=== PATIENT | male | born 1930 | race Caucasian/White ===

== ENCOUNTER → 2016-08-14 | Outpatient (CLI) | payer OTHER | LOC: FIMAGING 10:15 | PROVIDERS: ATTEND Internal Medicine Cardiovascular Disease | DX: R09.89 Other specified symptoms and signs involving the circulatory and respiratory systems (principal); I70.8 Atherosclerosis of other arteries; I25.10 Atherosclerotic heart disease of native coronary artery without angina pectoris ==

== ENCOUNTER 2017-03-30 14:58 | Emergency (ER) | payer OTHER ==
[2017-03-30 15:03] VITALS: BP 150/66; PULSE 58; RESP 16; TEMP 97.7; O2SAT 98
--- NOTE | 2017-03-30 15:23 | EDPHY ---
HPI/HX/ROS/PE/MDM Narrative: CHIEF COMPLAINT: Left hand laceration HPI: The patient is an 86 y/o male complaining of a left hand laceration after accidently stabbing himself with his pocket knife 1 hour ago. Denies numbness, fever, chills. REVIEW OF SYSTEMS: Aside from elements discussed in the HPI, a comprehensive 10-point review of systems was reviewed and is negative. PMH: Hypertension, hypercholesteremia, GERD, spinal fusion SOCIAL HISTORY: , lives in [place], retired PHYSICAL EXAM: General: Patient is alert, in no acute distress. Left Hand: 1.5cm laceration to dorsal aspect of left hand between 1st and 2nd digits. Light touch sensation and motor function is preserved in the axillary, median, radial and ulnar nerve distributions. There is a 2+ radial pulse with brisk cap refill. Neuro: Oriented x3. Normal motor function. Normal sensory function. ED Course: 1545: Procedure: Laceration repair. Verbal consent was obtained from the patient. The linear 1.5cm laceration on the dorsal aspect of the left hand between the 1st and 2nd digits, was anesthetized using lidocaine with epinephrine. The wound was cleaned with standard ED protocol, draped and explored to its base with a gloved finger. There were no deep structures involved. No tendon injury was identified. The wound was repaired in single layer technique with 3, 4-0 Prolene sutures. The wound repair was simple. The procedure was performed by myself, Dr. Reyna. Reassessed patient and discussed return precautions. Patient is comfortable with this plan. MDM: Uncomplicated laceration without evidence of FB, nerve,tendon or vessel involvement. General Time Seen by Provider: 03/30/17 15:20 Initial Vital Signs: Initial Vital Signs Temperature (C) 36.5 C 03/30/17 15:01 Heart Rate 58 L 03/30/17 15:01 Respiratory Rate 16 03/30/17 15:01 Blood Pressure 150/66 H 03/30/17 15:01 O2 Sat (%) 98 03/30/17 15:01 O2 Delivery Mode Room Air Allergies/Adverse Reactions: No Allergies Allergy (Unknown, Verified 04/21/13 10:54) Home Medications: Medication Instructions Recorded Atorvastatin Calcium [Lipitor] 0 mg PO 01/07/11 Levothyroxine Sodium [Synthroid] 25 mcg PO DAILY 01/07/11 Losartan Potassium 25 mg PO DAILY 01/07/11 Metoprolol Succinate Xr [Toprol Xl] 0 mg PO DAILY 01/07/11 Omeprazole 0 mg PO 01/07/11 Triamterene/Hydrochlorothiazid 1 each PO 01/07/11 [Triamterene-Hctz 75-50 mg Tab] Cephalexin [Keflex (RX)] 500 mg PO Q6H #28 cap 04/21/13 SULFAMETHOXAZOLE/TRIMETHOPRIM 1 each PO BID #14 tab 04/21/13 [BACTRIM DS TABLET] Departure - Departure Disposition: Home, Routine, Self-Care Clinical Impression: Laceration Condition: Good Instructions: Laceration (ED) Additional Instructions: 1. Sutures out in 10-14 days. 2. Return to the Emergency Department for fever, redness, discharge from wound, increasing pain or other worsening of condition. Referrals: To Kaufman MD [Primary Care Provider] - As per Instructions Report Scribed for: Quang Reyna Report Scribed by: Leslee Euceda Date of Report: 03/30/17 Time of Report: 15:23 Physician Review and Approval Statement: Portions of this note were transcribed by an ED scribe. I personally performed the history, physical exam, and medical decision making; and confirm the accuracy of the information in the transcribed note.
== END 2017-03-30 15:50 | disposition home or self-care (01) ==
PROC: 0HQGXZZ Repair Left Hand Skin, External Approach (ICD-10-PCS; principal; 2017-03-30)
DX: S61.412A Laceration without foreign body of left hand, initial encounter (principal); I10 Essential (primary) hypertension; W26.0XXA Contact with knife, initial encounter

== ENCOUNTER → 2017-03-31 | Outpatient (CLI) | payer OTHER | LOC: BHFA 10:45 | PROVIDERS: ATTEND Internal Medicine Cardiovascular Disease | DX: I10 Essential (primary) hypertension (principal) ==

== ENCOUNTER 2018-03-04 10:50 | Inpatient (IN) | payer OTHER ==
[2018-03-04] MEDS ORDERED: CLOPIDOGREL BISULFATE 75 MG TAB ONE (10:56)
[2018-03-04] MEDS ORDERED: LIDOCAINE 1% 300 MG/30 ML SDV ONE (10:57)
--- NOTE | 2018-03-04 10:57 | EDPHY ---
H & P Time Seen by Provider: 03/04/18 10:50 HPI/ROS: CHIEF COMPLAINT: Chest pain, cardiac alert HISTORY OF PRESENT ILLNESS: Symptoms started around 10:00 a.m., central chest pain like somebody sitting on his chest. Little bit associated shortness of breath. Does not radiate. Not better worse with respiration or exertion. Received oral aspirin in route by EMS. REVIEW OF SYSTEMS: Eye: no change in vision ENT: no sore throat Cardiac: HPI Pulmonary: no cough or SOB Abdomen: no vomiting, diarrhea, abdominal pain Musculoskeletal: no back pain Skin: no rash Neuro: no headache Constitutional: no fever : no urinary symptoms A comprehensive 10 point review of systems is otherwise negative aside from elements mentioned in the history of present illness. PAST MEDICAL HISTORY: Coronary disease with previous stenting 10 years ago. Includes hypertension, hypercholesterolemia, spinal fusion. Social history: [employer] patient, retired, lives in [place]. General Appearance: Alert and conversant, cooperative. Eyes: No scleral icterus. ENT, Mouth: Normal mucous membranes. Respiratory: Normal respiratory effort, breath sounds equal, lungs are clear to auscultation. Cardiovascular: Regular rate and rhythm. Gastrointestinal: Abdomen is soft and non tender. Neurological: Alert, face symmetric, normal motor and sensory in extremities. Skin: Warm and dry, no rashes. Musculoskeletal: No peripheral edema. Psychiatric: Not agitated. Emergency Department course/MDM: Cardiology present on arrival for the ambulance. Directly to logging rafter laborer for ST elevation OK. Oral Plavix given in ED prior to cath, specifically at the request of entry level software developer Dr. Armando. Total critical care time 10 min. Smoking Status: Never smoked Constitutional: Initial Vital Signs Temperature (C) 36.4 C 03/04/18 11:00 Heart Rate 63 03/04/18 11:00 Respiratory Rate 18 03/04/18 11:00 Blood Pressure 161/81 H 03/04/18 11:00 O2 Sat (%) 100 03/04/18 11:00 O2 Delivery Mode Room Air Allergies/Adverse Reactions: No Allergies Allergy (Unknown, Verified 03/04/18 10:59) Home Medications: Medication Instructions Recorded Atorvastatin Calcium [Lipitor] 0 mg PO 01/07/11 Levothyroxine Sodium [Synthroid] 25 mcg PO DAILY 01/07/11 Losartan Potassium 25 mg PO DAILY 01/07/11 Metoprolol Succinate Xr [Toprol Xl] 0 mg PO DAILY 01/07/11 Omeprazole 0 mg PO 01/07/11 Triamterene/Hydrochlorothiazid 1 each PO 01/07/11 [Triamterene-Hctz 75-50 mg Tab] Cephalexin [Keflex (RX)] 500 mg PO Q6H #28 cap 04/21/13 SULFAMETHOXAZOLE/TRIMETHOPRIM 1 each PO BID #14 tab 04/21/13 [BACTRIM DS TABLET] Medical Decision Making - Diagnostics EKG Interpretation: 12-lead EKG interpreted by me; official reading is in computer system. My interpretation is sinus rhythm with acute inferior OK with ST elevation and lateral reciprocal changes. Differential Diagnosis: Differential diagnosis considered for chest pain including but not limited to myocardial ischemia, aortic dissection, pericarditis, pulmonary embolus, chest wall pain, pleural inflammation and pulmonary infectious causes. - Data Points Laboratory Results: Laboratory Results 03/04/18 11:00 03/04/18 03/04/18 03/04/18 11:02 11:00 11:00 WBC RBC Hgb POC Hgb 16.0 gm/dL gm/dL (13.7-17.5) Hct POC Hct 47 % % (40-51) MCV MCH MCHC RDW Plt Count MPV Neut % (Auto) Lymph % (Auto) [place] % (Auto) Eos % (Auto) Baso % (Auto) Nucleat RBC Rel Count Absolute Neuts (auto) Absolute Lymphs (auto) Absolute Monos (auto) Absolute Eos (auto) Absolute Basos (auto) Absolute Nucleated RBC Immature Gran % Immature Gran # PT Pending INR Pending APTT Pending POC Sodium 138 mEq/L mEq/L (135-145) Sodium Pending POC Potassium 4.7 mEq/L mEq/L (3.3-5.0) Potassium Pending POC Chloride 105 mEq/L mEq/L (97-110) Chloride Pending Carbon Dioxide Pending Anion Gap Pending POC BUN 22 mg/dL mg/dL (7-23) BUN Pending Creatinine Pending POC Creatinine 1.3 mg/dL mg/dL (0.7-1.3) Estimated GFR Pending Glucose Pending POC Glucose 101 mg/dL H mg/dL (70-100) Calcium Pending Troponin I Pending 03/04/18 11:00 WBC 7.69 10^3/uL 10^3/uL (3.80-9.50) RBC 4.79 10^6/uL 10^6/uL (4.40-6.38) Hgb 15.9 g/dL g/dL (13.7-17.5) POC Hgb Hct 46.6 % % (40.0-51.0) POC Hct MCV 97.3 fL fL (81.5-99.8) MCH 33.2 pg pg (27.9-34.1) MCHC 34.1 g/dL g/dL (32.4-36.7) RDW 12.0 % % (11.5-15.2) Plt Count 152 10^3/uL 10^3/uL (150-400) MPV 10.7 fL fL (8.7-11.7) Neut % (Auto) 46.3 % % (39.3-74.2) Lymph % (Auto) 39.5 % % (15.0-45.0) [place] % (Auto) 11.2 % % (4.5-13.0) Eos % (Auto) 2.0 % % (0.6-7.6) Baso % (Auto) 0.7 % % (0.3-1.7) Nucleat RBC Rel Count 0.0 % % (0.0-0.2) Absolute Neuts (auto) 3.57 10^3/uL 10^3/uL (1.70-6.50) Absolute Lymphs (auto) 3.04 10^3/uL H 10^3/uL (1.00-3.00) Absolute Monos (auto) 0.86 10^3/uL H 10^3/uL (0.30-0.80) Absolute Eos (auto) 0.15 10^3/uL 10^3/uL (0.03-0.40) Absolute Basos (auto) 0.05 10^3/uL 10^3/uL (0.02-0.10) Absolute Nucleated RBC 0.00 10^3/uL 10^3/uL (0-0.01) Immature Gran % 0.3 % % (0.0-1.1) Immature Gran # 0.02 10^3/uL 10^3/uL (0.00-0.10) PT INR APTT POC Sodium Sodium POC Potassium Potassium POC Chloride Chloride Carbon Dioxide Anion Gap POC BUN BUN Creatinine POC Creatinine Estimated GFR Glucose POC Glucose Calcium Troponin I Medications Given: Discontinued Medications Clopidogrel Bisulfate (Plavix) 600 mg PO EDNOW ONE Stop: 03/04/18 11:04 Last Admin: 03/04/18 10:57 Dose: 600 mg Point of Care Test Results: Chemistry 03/04/18 11:02 POC Sodium 138 mEq/L mEq/L (135-145) POC Potassium 4.7 mEq/L mEq/L (3.3-5.0) POC Chloride 105 mEq/L mEq/L (97-110) POC BUN 22 mg/dL mg/dL (7-23) POC Creatinine 1.3 mg/dL mg/dL (0.7-1.3) POC Glucose 101 mg/dL H mg/dL (70-100) ISTAT H&H 03/04/18 11:02 POC Hgb 16.0 gm/dL gm/dL (13.7-17.5) POC Hct 47 % % (40-51) Departure - Departure Disposition: To OP Cath/Surgery Clinical Impression: Acute OK Qualifiers: Myocardial infarction type: ST elevation myocardial infarction Involved coronary artery: unspecified coronary artery Qualified Code(s): I21.3 - ST elevation (STEMI) myocardial infarction of unspecified site Condition: Serious Referrals: Patient,NotPresent [Primary Care Provider] - As per Instructions
[2018-03-04] MEDS ORDERED: MIDAZOLAM 2 MG/2 ML VIAL ONE (10:58)
[2018-03-04] MEDS ORDERED: fentaNYL 100 MCG/2 ML INJ ONE (10:58)
[2018-03-04] MEDS ORDERED: IOPAMIDOL (ISOVUE-370) 150 ML BTL IV ONE (10:58)
[2018-03-04] MEDS ORDERED: BIVALIRUDIN 250 MG/5 ML VIAL IV ONE (11:01)
[2018-03-04] MEDS ORDERED: ATROPINE SULFATE 1 MG/10 ML SYR ONE (11:01)
[2018-03-04] MEDS ORDERED: EPINEPHrine 1 MG/10 ML SYR IVP ONE (11:01)
[2018-03-04] MEDS ORDERED: CLOPIDOGREL BISULFATE 75 MG TAB PO ONE (11:03)
--- NOTE | 2018-03-04 11:04 | CPEKG ---
Test Reason : OPEN Blood Pressure : / mmHG Vent. Rate : 064 BPM Atrial Rate : 063 BPM P-R Int : 144 ms QRS Dur : 122 ms QT Int : 414 ms P-R-T Axes : 058 095 084 degrees QTc Int : 427 ms Sinus rhythm Nonspecific intraventricular conduction delay Inferoposterior infarct, acute (RCA) Lateral leads are also involved Probable RV involvement, suggest recording right precordial leads Confirmed by Brayan Bowman ([id number]) on 03/04/2018 11:03:43 AM Referred By: Confirmed By:Brayan Bowman
[2018-03-04 11:07] LABS: PLATELET COUNT 152 10^3/uL (150-400)
[2018-03-04 11:12] LABS: INR 0.98 (0.83-1.16); PROTIME(PATIENT) 13.2 SEC (12.0-15.0)
--- NOTE | 2018-03-04 11:13 | PDCONSULT ---
Title Examiner Note: CC: chest pains HPI: Patient is an 87 y/o male with history of CAD s/p PCI (unknown vessel), HTN, and HLP, who presents to the ER via EMS with "chest pains". In the field, EMS with ECG revealing ST elevation to the inferior leads. Symptoms began about 30 minutes prior to arrival in the ER. Substernal location with left moreso than right in the beginning. No symptoms were noted this morning upon awakening. Radiation of the discomfort into the shoulders, and neck. Patient "feels not well" with associated dyspnea. Patient does not have ASA therapy on home medication list. In the ER, the patient was given 600 mg of Plavix. No PND or orthopnea has been noted. No regular follow up with cardiology has been performed for "...some time..." Remainder of the 12 point review of systems was unremarkable PHMx: (1) CAD with PCI to unspecified vessel (2) HTN (3) HLP (4) No DM (5) GERD (6) Hypothyroidism PSHx: (1) PCI SHx: (1) non smoker FHx: Non contributory NKDA Home medications (1) Prilosec 20 mg (2) Pravastatin 20 mg (3) Toprol XL 50 mg (4) Triam/HCTZ 37.5/25 mg (5) Losartan 50 mg (6) Levothyroxine 0.05 mg (7) Vitamin, CoQ-10, Mg Vital as below GEN: awake and alert with discomfort to anterior chest (at this point in time, right moreso than left) SKIN: No rash, excoriation HEENT: NCAT with PERRLA, EOMI Neck: (+) JVD was noted LUNGS: CTA bilaterally without crackles noted COR: RRR without m/r/g, (+S4) ABD: Soft, NTND with NABS EXT: No c/c/e, 2+ DP/PT/RAD Neuro: No focal deficits were noted Labs: All pending Echocardiogram: Pending ECG with ST elevation to II, III, aVF Assessment: 87 y/o male with acute onset of chest pains/discomfort about 30 minutes prior to admission via EMS. ECG with dynamic ST/T wave changes noted. Plavix load in the ER. Patient to be taken to the cardiac cardiac cath lab technologist now Plan: (1) Angiography for assessment of the RCA lesion location/extent Further recommendations after diagnostic testing completed
[2018-03-04] MEDS ORDERED: NITROGLYCERIN 1,500 MCG/15 ML VIAL MISC ONE (11:31)
[2018-03-04] MEDS ORDERED: ACETAMINOPHEN 325 MG TAB PO PRN (11:56)
[2018-03-04] MEDS ORDERED: LORazepam 2 MG/ML INJ IVP PRN (11:56)
[2018-03-04] MEDS ORDERED: hydrALAZINE 20 MG/ML VIAL IVP PRN (12:00)
--- NOTE | 2018-03-04 12:57 | ECHO ---
[email or web address] [address] [address] Main: [phone] Fax: Transthoracic Echocardiogram Name: DEL VALDEZ MR#: [id number] Study Date: 03/04/2018 Study Time: 12:19 PM Date of : 1930 Age: 87 year(s) Height: 177.8 cm (70 in.) Weight: 81.01 kg (178.59 lb.) BSA: 1.99 m2 Gender: Male Examination: Echo Indication: Post Cath Image Quality: Contrast: Requested by: Brayan Bowman BP: / Heart Rate: Rhythm: Indication: Post Cath Procedure Staff Safety Lamp Keeper: Mac Taylor RDCS Reading Physician: Pal Johnson MD Requesting Provider: Safety Lamp Keeper: Reading Physician: Pal Johnson MD Requesting Provider: Conclusions: Normal size left ventricle. No LV hypertrophy. Normal global systolic LV function. EF is 61 %. Diastolic dysfunction is present. . There is basilar to mid inferolateral dyskinesis.. Trivial mitral valve regurgitation. The aortic valve is tri-leaflet and functions normally. Trivial tricuspid valve regurgitation. The pulmonic valve is normal in appearance and function. No pericardial effusion. Measurements: Chambers Valvular Assessment AV/MV Valvular Assessment TV/PV Normal Normal Normal Name Value Range Name Value Range Name Value Range IVSd (2D): 0.8 cm (0.6 cm-1.1 AV Vmax: 1.05 m/s (1 m/s-1.7 TR Vmax: 2.43 mm/s ( - ) cm) m/s) TR PGmax: 24 mmHg ( - ) LVDd (2D): 4.0 cm (4.2 cm-5.9 AV maxP mmHg ( - ) syst. PAP: 34 mmHg ( - ) cm) LVOT Vmax: 0.94 m/s (0.7 m/s-1.1 PV Vmax: 0.80 m/s (0.6 m/s-0.9 LVDs (2D): 2.7 cm (2.1 cm-4 m/s) m/s) cm) MV E Vmax: 0.81 m/s ( - ) PV PGmax: 3 mmHg ( - ) LVPWd (2D): 0.9 cm (0.6 cm-1 MV A Vmax: 0.65 m/s ( - ) cm) MV E/A: 1.25 ( - ) LVEF (2D): 61 (>=54 %) Patient: DEL VALDEZ Study Date: 03/04/2018 Page 1 of 2 12:19 PM Continued Measurements: Chambers Valvular Assessment AV/MV Valvular Assessment TV/PV Name Value Name Value Name Value LADs: 3.5 cm MV E' Septal: 0.04 m/s CVP (est.): 10 mmHg LADs Lon.7 cm MV E/E' Septal: 18.50 LA Area: 16.1 cm2 MV E/E' Lateral: 16.40 LA Volume: 48 ml LA Volume Index: 24.1 ml/m2 Findings: Left Ventricle: Normal size left ventricle. No LV hypertrophy. Normal global systolic LV function. EF is 61 %. Diastolic dysfunction is present. . There is basilar to mid inferolateral dyskinesis.. Right Ventricle: Normal size right ventricle. Normal RV function. Left Atrium: The left atrium is normal in size. Right Atrium: The right atrium is normal in size. Mitral Valve: The mitral valve is normal in appearance and function. Trivial mitral valve regurgitation. Aortic Valve: The aortic valve is tri-leaflet and functions normally. There is no significant aortic valve regurgitation. Tricuspid Valve: The tricuspid valve appears normal. Trivial tricuspid valve regurgitation. The pulmonary artery pressure is normal. Pulmonic Valve: The pulmonic valve is normal in appearance and function. Aorta: The aorta is normal. Pericardium: No pericardial effusion. (No Signature Object) Patient: DEL VALDEZ Study Date: 03/04/2018 Page 2 of 2 12:19 PM [id number]
--- NOTE | 2018-03-04 15:09 | PDMN ---
Medical Necessity Medical necessity: Meets IP criteria per MD and MCG M-230 for STEMI requiring percutaneous intervention and ICU care
--- NOTE | 2018-03-04 16:05 | PDCONSULT ---
Search Engineer Note: Assessment # STEMI status post PCI with DESx2 to RCA # Moderate to severe ANASTASIA # hypoxemic respiratory failure, secondary to above # hypertension # hypothyroidism # GERD # chronic back pain status post prior surgeries Plan # post STEMI care per Cardiology # CPAP with naps and while sleeping. Patient has home CPAP but not does not tolerate full face mask. Patient has never tried a nasal mask or nasal pillows. Given cardiovascular comorbidities patient is much higher risk for complications from CPAP non adherence. I also advised patient and to call his DME company and asked to try a new nasal mask or pillows. I also recommend a short-term supply of a sleep aid to help acclimatize to his mask. Suggest trazodone 25 mg p.o. QHS or Ambien 2.5-5 mg p.o.QHS # continue Synthroid # continue oral outpatient antihypertensives # continue GERD treatment Chief complaint Chest pain HPI Mr. Polo is a very pleasant 87-year-old male with a history of CAD and prior PCI, hypertension, chronic back pain, ANASTASIA who presented to [facility] Emergency Department with substernal chest pain. He described left greater than right chest pain that he noticed upon awakening radiating into his shoulders and neck. This was incompletely relieved with rest. Patient was noted to have inferior lead ST elevations and was taken immediately to the dental laboratory assistant. He underwent PCI with drug eluting stents x2 to his RCA. At the time of interview patient denies chest pain, headaches, shortness of breath, fevers chills, leg swelling, however cold intolerance, depression. Allergies no known drug allergies Past medical history coronary disease status post prior PCI, hypertension, hyperlipidemia, chronic back pain, GERD, hypothyroidism Social history patient does not currently drink or smoke. He lives with his . They like to travel. Review of systems A comprehensive 10 point review of systems is obtained is negative except as per HPI Vitals Afebrile, pulse 57, blood pressure 119/52, respiratory rate 10, 100% on room air. Significant desaturations to less than 88% noted while sleeping. GEN: NAD, resting in bed a 30 degree incline. NEURO: A&Ox3, CN 2-12 GI HEENT: PERRL, EOMI, MMM, OP clear NECK: supple, trachea midline CHEST normal shape, no pes excavatum CVS: rrr no m/r/g PULM: CTA B, no wheezes/rales/rhonchi ABD: soft, NT, ND, NABS EXT: Right cor growing bandage with small to moderate amount fresh blood. No obvious hematoma. No pedal edema SKIN: warm, dry, intact, no rash PSYCH CAM negative, appropriate affect Data I reviewed patient's laboratory data and available medical record. Significant for a normal WBC count, hemoglobin 16, platelets 152, serum creatinine 1.3
--- NOTE | 2018-03-04 18:59 | CPIP ---
DATE OF PROCEDURE: 03/04/2018 REASON FOR PROCEDURE: STEMI. PROCEDURE PERFORMED: 1. Nonselective right groin sheathogram. 2. Bilateral coronary angiography. 3. Left heart catheterization. 4. Left ventriculogram. 5. Percutaneous coronary intervention of prox and mid RCA utilizing Synergy 3.5 x 16 mm drug-eluting stent and 3.0 x 16 mm drug-eluting stent. HISTORY: Briefly, this is an -iexd-yiz male with history of coronary artery disease. The patient had chest pain for the last 45 minutes. He came to the emergency room, was found to have an inferior STEMI. Patient was taken emergently to [facility] Cold Roll Operator. DESCRIPTION OF PROCEDURE: Patient was administered p.o. prior to getting on the table. A fter informed consent, we utilized right groin. 6-Portuguese sheath placed in right common femoral arter y after local lidocaine was given. A JL4 catheter was advanced to the left coronary artery. Images of left coronary artery revealed normal left main. Left circumflex artery with small caliber with mi ld 20% to 30% disease proximally. There appeared to be a high takeoff of a bifurcating ramus which h ad diffuse 30% to 40% disease, but no focal high-grade stenosis. Of note, there was collateralizatio n to the distal which indicated an RCA occlusion. The LAD had a stent in its proximal asp ect which appeared to be patent. There was 20% to 30% disease proximal to the stent, but no high-gra de obstruction. Distally, the LAD was a long vessel which wrapped around the apex with no significan t disease. After imaging was obtained, the JL4 diagnostic was removed. The JR4 guide catheter was t hen advanced to the right coronary artery, and this right coronary artery revealed normal ostial RCA. The proximal RCA had 30% to 40% tubular disease followed by an area of normal vessel. Just after t he takeoff of the RV marginal, there was 100% occlusion of the vessel. At this time, patient started on Angiomax bolus and drip. A ChoICE PT wire was advanced successfully and maneuvered to the RPDA. IVUS performed, angiography was obtained which showed what appeared to be an acute ruptured plaque i n the mid RCA. Of note, there appeared to be also a ruptured hazy area of the proximal RCA just abov e the RV marginal branch as well. At this time, we placed a 3.0 x 12 balloon into the mid RCA, infla riky at 12 atmospheres. After deflation, angiographic images were obtained which showed much improved patency of the mid RCA with no evidence of dissection or perforation. Of note, the proximal area of ulceration in question was still present. We decided to proceed with attempting stenting this vesse l; however, the 3.0 x 16 cm stent would not traverse the area, thus we put a aly wire with an Intui tion wire. The stent was then tried again, and this traversed easily this time, and this went to the mid RCA and deployed successfully after pulling back the Intuition wire at 16 atmospheres. After de ployment of the mid RCA stent, angiography obtained which showed improved patency of this area. We t hen proceeded with placing the aly wire back into the We then proceeded to tack up the p roximal lesion with a 3 x 5, 60 mm Synergy stent. After the second wire was pulled back, it was depl oyed at 16 atmospheres. After deployment, angiographic images were obtained which showed excellent p atency of the stented regions with no evidence of dissection or perforation. Wire was pulled back. The guide catheter was removed over a 0.035 wire. The pigtail catheter was then advanced in the left ventricle, EDP is 15 mmHg, left ventriculogram in the MELISSA projection showed an EF of 65% with no wal l motion abnormalities. No pullback gradient between the LV and the aorta. Pigtail catheter removed over a 0.035 wire, right groin, sutured in place. Patient tolerated the procedure well, no complica tions. IMPRESSION: 1. Successful percutaneous coronary intervention of right coronary artery ST-elevation myocardial in farction involving 2 focal areas, one in the proximal right coronary artery and the second in the mid right coronary artery with 2 Synergy drug-eluting stents. 2. Patent stent in the proximal to mid left anterior descending with diffuse noncritical disease in the left coronary system. 3. Normal ejection fraction. PLAN: The patient will have the sheath discontinued 2 hours after the Angiomax is finished. Echocar diogram to be ordered. Admit to ICU. /[id number]
[2018-03-05 07:25] LABS: PLATELET COUNT 132 10^3/uL (150-400)
--- NOTE | 2018-03-05 08:42 | PDCARPN ---
Cardiology Progress Note Chief Complaint: CP Assessment/Plan: Assessment: STEMI PCI to RCA Plan: 03/05/18 08:41 doing well transfer to PCU continue current tx d/c in AM if stable Subjective: doing well Reviewed/Discussed With: multidisciplinary team Time Spent with Patient: greater than 25 minutes Time Spent with Patient: Greater than 25 minutes spent on this patients care, greater than 50% of time spent counseling, educating, and coordinating care regarding the above mentioned plan. Objective: Vital Signs (8 Hrs) Temp Pulse Resp BP Pulse Ox 03/05/18 08:00 52 L 12 127/61 H 100 03/05/18 06:00 52 L 16 113/59 L 95 03/05/18 04:00 37.0 C 56 L 18 120/53 L 96 03/05/18 02:00 56 L 14 110/54 L 95 Intake/Output (24 Hrs) 03/04/18 03/05/18 03/06/18 05:59 05:59 05:59 Intake Total 1300 Output Total 1850 Balance -550 Intake: Oral (ml) 500 IV Intake (ml) 800 Output: Urine (ml) 1850 Urinal 1850 Other: Weight 79.379 kg Result Diagrams: 03/05/18 04:00 03/05/18 04:00 Cardiac Labs: Cardiac Lab Results (72 Hrs) 03/05/18 03/04/18 04:00 11:00 Troponin I 36.100 H 0.061 H - Physical Exam Constitutional: healthy appearing Eyes: PERRL Ears, Nose, Mouth, Throat: moist mucous membranes Cardiovascular: regular rate and rhythm Peripheral Pulses: 1+: femoral (R), femoral (L) Respiratory: clear to auscultate bilat Gastrointestinal: normoactive bowel sounds Genitourinary: no suprapubic tenderness Skin: no rashes Musculoskeletal: no muscular tenderness Neurologic: AAOx3 Psychiatric: cooperative ICD10 Worksheet Patient Problems: Problems Problem Status Onset Acute [place] Acute
[2018-03-05] MEDS ORDERED: PRAVASTATIN SODIUM 40 MG TAB PO SCH (09:00)
[2018-03-05] MEDS ORDERED: ATORVASTATIN CALCIUM 40 MG TAB PO SCH (09:00)
[2018-03-05] MEDS ORDERED: LOSARTAN POTASSIUM 50 MG TAB PO SCH (09:00)
[2018-03-05] MEDS ORDERED: METOPROLOL SUCCINATE XR 25 MG TAB PO SCH (09:00)
--- NOTE | 2018-03-05 09:30 | PDINTPN ---
Cleaning Handyman Progress Note Assessment/Plan: Assessment # STEMI status post PCI with DESx2 to RCA, doing excellent # Moderate to severe ANASTASIA # hypertension # hypothyroidism # GERD # chronic back pain status post prior surgeries Plan # post STEMI care per Cardiology # CPAP with naps and while sleeping. Patient has home CPAP but not does not tolerate full face mask. Patient has never tried a nasal mask or nasal pillows. Given cardiovascular comorbidities patient is at higher risk for complications from CPAP non adherence. I counseled again this morning to call his DME company and asked to try a new nasal mask or pillows. I also recommend a short-term supply of a sleep aid to help acclimatize to his mask. Suggest trazodone 25 mg p.o. QHS or Ambien 2.5-5 mg p.o.QHS # continue Synthroid # continue oral outpatient antihypertensives # continue GERD treatment # agree with PCU transfer Subjective: Slow up well overnight. No recurrent chest pain, groin site without hematoma or saturated bandages. Slept well throughout the night however was noted to be snoring in a couple witnessed apneas however with significant desaturation Objective: Vital Signs Temp Pulse Resp BP Pulse Ox 37.0 C 52 L 12 127/61 H 100 03/05/18 04:00 03/05/18 08:00 03/05/18 08:00 03/05/18 08:00 03/05/18 08:00 Laboratory Results 03/05/18 04:00 03/05/18 04:00 03/04/18 03/05/18 03/06/18 05:59 05:59 05:59 Intake Total 1300 Output Total 1850 Balance -550 PT 13.2 SEC (12.0-15.0) 03/04/18 11:00 INR 0.98 (0.83-1.16) 03/04/18 11:00 Physical Exam - Physical Exam General Appearance: WD/WN, alert, no apparent distress EENT: PERRL/EOMI, other (Mallampati 4, scalloped tongue) Neck: non-tender, supple Respiratory: chest non-tender, lungs clear, normal breath sounds Cardiac/Chest: regular rate, rhythm, No edema, No gallop, No JVD Abdomen: non-tender, soft Male Genitalia: deferred Rectal: deferred Skin: normal color, warm/dry Extremities: non-tender (Right right groin access site clean dry and intact, no hematoma), normal capillary refill Neuro/Psych: no motor/sensory deficits, alert, oriented x 3 ICD10 Worksheet Patient Problems: Problems Problem Status Onset Acute [place] Acute chronic disease mgmt/transitional care Acute
[2018-03-05] MEDS: CLOPIDOGREL BISULFATE 75 MG TAB PO SCH (09:43)
[2018-03-05] MEDS: ASPIRIN EC 81 MG TAB PO SCH (09:43)
[2018-03-05] MEDS: METOPROLOL SUCCINATE XR 50 MG TAB PO SCH (09:45)
[2018-03-05] MEDS: TRIAMTERENE/HCTZ 37.5/25 1 EACH TAB PO SCH (09:46)
[2018-03-05] MEDS: LOSARTAN POTASSIUM 50 MG TAB PO SCH (09:46)
--- NOTE | 2018-03-05 11:24 | ASMTCASEMG ---
Living Arrangements What is your living Answers: With Spouse arrangement? Who do you live with? Type Of Residence What kind of residence do Answers: House you live in? Discharge Plan Comments Coordination Status Comments Notes: Patient is an 87yo male who was brought to [facility] ED for cardiac alert, chest pain. Patient was taken to the cardiac dock or pier laborer. Cardiac rehab consult has been ordered. D/C plan TBD. CM will follow. Date Signed: 03/05/2018 11:24 AM Electronically Signed By:Arminda Kumar LCSW
[2018-03-06 04:16] LABS: PLATELET COUNT 129 10^3/uL (150-400)
[2018-03-06] MEDS ORDERED: LEVOTHYROXINE 75 MCG TAB PO SCH (06:00)
--- NOTE | 2018-03-06 07:04 | PDCARPN ---
Cardiology Progress Note Chief Complaint: CP Assessment/Plan: Assessment: STEMI PCI to RCA Plan: 03/05/18 08:41 doing well transfer to PCU continue current tx d/c in AM if stable 03/06/18 07:03 doing well no CP trop decreased d/c home today f/u next week Subjective: doing well Reviewed/Discussed With: multidisciplinary team Time Spent with Patient: greater than 25 minutes Time Spent with Patient: Greater than 25 minutes spent on this patients care, greater than 50% of time spent counseling, educating, and coordinating care regarding the above mentioned plan. Objective: Vital Signs (8 Hrs) Temp Pulse Resp BP Pulse Ox 03/06/18 04:00 36.9 C 60 17 125/58 H 93 03/05/18 23:48 37.1 C 52 L 16 117/58 L 95 Intake/Output (24 Hrs) 03/05/18 03/06/18 03/07/18 05:59 05:59 05:59 Intake Total 1300 1300 Output Total 1850 500 Balance -550 800 Intake: Oral (ml) 500 1300 IV Intake (ml) 800 Output: Urine (ml) 1850 500 Urinal 1850 500 Other: Weight 79.379 kg Number of Voids Urinal 1 Result Diagrams: 03/06/18 03:08 03/06/18 03:08 Cardiac Labs: Cardiac Lab Results (72 Hrs) 03/06/18 03/05/18 03/04/18 03:08 04:00 11:00 Troponin I 14.700 H 36.100 H 0.061 H - Physical Exam Constitutional: healthy appearing Eyes: PERRL Ears, Nose, Mouth, Throat: moist mucous membranes Cardiovascular: regular rate and rhythm Peripheral Pulses: 1+: femoral (R), femoral (L) Respiratory: clear to auscultate bilat Gastrointestinal: normoactive bowel sounds Genitourinary: no suprapubic tenderness Skin: no rashes Musculoskeletal: no muscular tenderness Neurologic: AAOx3 Psychiatric: cooperative ICD10 Worksheet Patient Problems: Problems Problem Status Onset Acute [place] Acute chronic disease mgmt/transitional care Acute
--- NOTE | 2018-03-06 07:27 | GDS ---
DISCHARGE DIAGNOSES: ST-elevation myocardial infarction, coronary artery disease. HOSPITAL COURSE: Briefly, this is an 87-year-old male who was admitted on 03/04/2018, for acute ches t pain and was found to have inferior STEMI. The patient was taken to the cardiac seed laboratory assistant where he was found to have 100% occluded RCA. He underwent successful placement 2 drug-eluting stent placemen ts to his right coronary artery. He did have a stent in his LAD from a previous PCI, which was widel y patent with only moderate noncritical disease in the left coronary system. The patient's ejection fraction was normal. Postprocedure, the patient has done very well, ambulating in the halls without problems. There is no recurrent chest pain. Echo shows normal ejection fraction. The patient will be discharged home with his home medications including baby aspirin and Plavix. He will follow up in the office in 1 week's time. /[id number]/MODL
[2018-03-06] MEDS: ASPIRIN EC 81 MG TAB PO SCH (08:03)
[2018-03-06] MEDS: LOSARTAN POTASSIUM 50 MG TAB PO SCH (08:04)
[2018-03-06] MEDS: CLOPIDOGREL BISULFATE 75 MG TAB PO SCH (08:04)
[2018-03-06] MEDS: METOPROLOL SUCCINATE XR 50 MG TAB PO SCH ×2 (08:05→09:04)
[2018-03-06] MEDS ORDERED: PRAVASTATIN SODIUM 40 MG TAB PO SCH (09:00)
[2018-03-06] MEDS ORDERED: PANTOPRAZOLE SODIUM 40 MG TAB PO SCH (09:00)
[2018-03-06] MEDS: TRIAMTERENE/HCTZ 37.5/25 1 EACH TAB PO SCH (09:04)
--- NOTE | 2018-03-06 09:37 | ASMTCMCOM ---
CM Note CM Note Notes: CM spoke to SHARLA Dempsey regarding d/c POC. Pt will not have any needs when medically stable to d/c. CM available for changes. Plan: Independent Date Signed: 03/06/2018 09:36 AM Electronically Signed By:PATRICIA Driscoll
[2018-03-06 11:55] VITALS: BP 125/54
--- NOTE | 2018-03-08 14:51 | CPEKG ---
Test Reason : OPEN Blood Pressure : / mmHG Vent. Rate : 057 BPM Atrial Rate : 057 BPM P-R Int : 138 ms QRS Dur : 116 ms QT Int : 427 ms P-R-T Axes : 081 091 074 degrees QTc Int : 416 ms Sinus rhythm Incomplete right bundle branch block ST elevation, consider inferior injury Confirmed by Marvin Corrales ([id number]) on 03/08/2018 2:50:57 PM Referred By: Confirmed By:Marvin Corrales
--- NOTE | 2018-03-08 14:54 | CPEKG ---
Test Reason : OPEN Blood Pressure : / mmHG Vent. Rate : 057 BPM Atrial Rate : 057 BPM P-R Int : 155 ms QRS Dur : 124 ms QT Int : 459 ms P-R-T Axes : 069 078 064 degrees QTc Int : 447 ms Sinus rhythm Right bundle branch block Inferior infarct, acute Confirmed by Marvin Corrales ([id number]) on 03/08/2018 2:54:10 PM Referred By: Confirmed By:Marvin Corrales
--- NOTE | 2018-03-08 14:55 | CPEKG ---
Test Reason : OPEN Blood Pressure : / mmHG Vent. Rate : 064 BPM Atrial Rate : 064 BPM P-R Int : 151 ms QRS Dur : 119 ms QT Int : 428 ms P-R-T Axes : 083 103 -35 degrees QTc Int : 442 ms Sinus rhythm Incomplete right bundle branch block Abnormal T, consider ischemia, inferior leads Confirmed by Marvin Corrales ([id number]) on 03/08/2018 2:55:10 PM Referred By: Confirmed By:Marvin Corrales
== END 2018-03-06 13:30 | disposition home or self-care (01) | DRG 247 ==
LOC: EDUNIT# → F2N 10:58 → F2W 03-05 17:55 → UNDODISIN 03-06 13:05
PROVIDERS: ADMIT Internal Medicine Cardiovascular Disease; ATTEND Internal Medicine Cardiovascular Disease
DX: I21.19 ST elevation (STEMI) myocardial infarction involving other coronary artery of inferior wall (principal); I25.10 Atherosclerotic heart disease of native coronary artery without angina pectoris; K21.9 Gastro-esophageal reflux disease without esophagitis; E03.9 Hypothyroidism, unspecified; G47.33 Obstructive sleep apnea (adult) (pediatric); I10 Essential (primary) hypertension; M54.9 Dorsalgia, unspecified; E78.00 Pure hypercholesterolemia, unspecified; Z95.5 Presence of coronary angioplasty implant and graft; Z98.1 Arthrodesis status
CPT/HCPCS: 82435-PO; 82565-PO; 82947-PO; 84132-PO; 84295-PO; 84520-PO; 85014-PO; C1725; C1769; C1874; C1887; C9606; J0461; J0583; J1644; J2250; J3010; Q9967